=== PATIENT | female | born 1945 | race Caucasian/White ===

== ENCOUNTER → 2016-08-06 | Outpatient (CLI) | payer OTHER ==
[~2016-08-06] MED LIST: CLTP PO; COLE625T PO; CRS20 PO; DEXL60CA4 PO; Flax Seed Oil PO; GLIP2.5T11 PO; MELO7.5T5 PO; MULT-506 PO; OMEG10007 PO; PHN/25 PO; SERT1TAB71 PO; VALA500T60 PO
[2016-08-06 10:02] LABS: ESTIMATED AVERAGE GLUCOSE 163 mg/dl; HA1C FLAG Normal (Normal)
[2016-08-06 10:17] LABS: ALT/SGPT 52 U/L (12-78); AST/SGOT 29 U/L (15-37); BLOOD UREA NITROGEN 18 mg/dl (7-18); BUN/CREATININE RATIO 28.4 (10-20); CALCIUM 8.7 mg/dl (8.5-10.1); CARBON DIOXIDE 28 mmol/L (21-32); CHLORIDE 107 mmol/L (98-107); CREATININE 0.63 mg/dl (0.60-1.20); GLUCOSE 127 mg/dl (70-99); POTASSIUM 3.8 mmol/L (3.5-5.1); SODIUM 143 mmol/L (136-145)
[2016-08-06 10:19] LABS: ALB/GLOB RATIO 1.1 (0.9-2); ALKALINE PHOSPHATASE 71 U/L (45-117)
== END | disposition home or self-care (01) ==
LOC: C.LAB1850 08:08
PROVIDERS: ATTEND Internal Medicine Pulmonary Disease
DX: E78.00 Pure hypercholesterolemia, unspecified (principal); K21.9 Gastro-esophageal reflux disease without esophagitis; E11.9 Type 2 diabetes mellitus without complications; J30.9 Allergic rhinitis, unspecified

== ENCOUNTER → 2016-10-21 | Outpatient (CLI) | payer OTHER ==
--- NOTE | 2016-10-21 17:13 | MAMMOGRAPHY REPORT ---
BILATERAL DIGITAL SCREENING MAMMOGRAM WITH CAD: 10/21/2016 CLINICAL HISTORY: Routine screening. Patient has no complaints. TECHNIQUE: Bilateral CC and MLO views were obtained. Current study was also evaluated with a Compute r Aided Detection (CAD) system. COMPARISON: Comparison is made to exams dated: 10/18/2015 mammogram, 10/17/2014 mammogram, 10/16/2013 mamm ogram, 10/18/2012 mammogram, 10/14/2012 mammogram, and 08/05/2011 mammogram - [facility]. BREAST COMPOSITION: There are scattered areas of fibroglandular density in both breasts. FINDINGS: Focal asymmetry in the upper outer middle one third of the right breast appears nearly iden tical to all available prior mammograms dating back to at least 07/22/2009, therefore likely benign. There is stable nodularity throughout the left breast. Scattered benign-appearing calcifications bi laterally. No new suspicious mass, architectural distortion or cluster of microcalcifications is see n. IMPRESSION: ACR BI-RADS CATEGORY 1: NEGATIVE There is no mammographic evidence of malignancy. A 1 year screening mammogram is recommended. The pa tient will receive written notification of the results. Approximately 10% of breast cancers are not detected with mammography. A negative mammographic report should not delay biopsy if a clinically suggestive mass is present. Merry Dumont M.D. ay/:10/21/2016 15:10:30 Test Architect: Anju ADAM)(M), [facility] letter sent: Normal 1/2 BI-RADS Code: ACR BI-RADS Category 1: Negative
== END | disposition home or self-care (01) ==
LOC: C.MAMM 10:34
PROVIDERS: ATTEND Obstetrics & Gynecology
DX: Z12.31 Encounter for screening mammogram for malignant neoplasm of breast (principal)

== ENCOUNTER → 2016-12-11 | Outpatient (CLI) | payer OTHER ==
[2016-12-11 16:54] LABS: BLOOD UREA NITROGEN 18 mg/dl (7-18); BUN/CREATININE RATIO 28.7 (10-20); CALCIUM 9.3 mg/dl (8.5-10.1); CARBON DIOXIDE 29 mmol/L (21-32); CHLORIDE 108 mmol/L (98-107); CREATININE 0.63 mg/dl (0.60-1.20); GLUCOSE 164 mg/dl (70-99); PHOSPHORUS 3.2 mg/dl (2.5-4.9); SODIUM 143 mmol/L (136-145)
== END | disposition home or self-care (01) ==
LOC: C.LAB1850 15:32
PROVIDERS: ATTEND Physician Assistant
DX: K86.2 Cyst of pancreas (principal)

== ENCOUNTER → 2016-12-17 | Outpatient (CLI) | payer OTHER ==
[~2016-12-17] MED LIST changes: +OPTIRAY 320 IV PRN
--- NOTE | 2016-12-17 14:27 | DIAGNOSTIC IMAGING REPORT ---
PANCREAS (ABDOMEN) COMBO CLINICAL HISTORY: 71 years-old Female presenting with PANCREATIC CYST. TECHNIQUE: Multidetector CT of the abdomen was performed before and after the administration of intravenous contrast. IV contrast: 118 mL of Optiray 320. A dose lowering technique was used consistent with the principles of ALARA (as low as reasonably achievable). COMPARISON: MR from 12/06/2015 CT DOSE (mGy.cm): The estimated cumulative dose is 587.92 mGy.cm. FINDINGS: Internal [employer] topogram: Posterior lumbar fusion of L5-S1 with interbody spacer. Cholecystectomy clips noted. Lung bases: Minimal dependent change at the lung bases, likely atelectasis. Normal heart size. No pericardial or pleural effusion. Liver: Normal morphology. Density borderline for hepatic steatosis. No liver lesion. Conventional hepatic arterial anatomy. Superior mesenteric, portal, and hepatic veins patent. Biliary: Minimal central intrahepatic biliary ductal prominence. No extrahepatic biliary ductal dilatation. This slightly represents a reservoir effect in the post cholecystectomy state. Gallbladder surgically absent. Pancreas: Moderate parenchymal atrophy. Previously noted cystic change in the pancreas is not readily apparent due to the diminutive size. No enlarging cystic mass. Spleen: Normal. Adrenal glands: Normal. Kidneys: Bilateral nonobstructing renal calculi at the lower poles, the larger on the left measuring 5 mm. Few parenchymal hypodensities likely simple cysts. No hydronephrosis. Proximal ureters normal. Circumaortic left renal vein. Bowel: Normal. Normal appendix. No bowel obstruction. Peritoneum: No free fluid or gas. Vasculature: Atherosclerosis of the normal caliber abdominal aorta. IVC patent. Lymph nodes: No enlarged lymph nodes in the abdomen. Few subcentimeter prominent portacaval lymph nodes, possibly reactive. Abdominal wall: Asymmetric atrophy of the upper right rectus abdominis. Musculoskeletal: Posterior transpedicular screw and leonel fixation of the lower lumbar spine. IMPRESSION: 1. Previously noted subcentimeter pancreatic cyst evident on prior MR is not readily apparent on CT due to its diminutive size and moderate parenchymal fatty atrophy. However, due to the lack of change in size between MR dated 05/04/2014 and 12/06/2015, no further follow-up is warranted per the [employer] incidental findings committee recommendations cystic pancreatic lesions less than 2 cm in size. 2. Bilateral nonobstructing renal calculi. Electronically signed by: Zackary Landaverde M.D. 12/17/2016 2:25 PM Dictated Date/Time: 12/17/2016 2:15 PM
== END | disposition home or self-care (01) ==
LOC: C.CTS 13:53
PROVIDERS: ATTEND Physician Assistant
DX: K86.2 Cyst of pancreas (principal)

== ENCOUNTER → 2017-02-02 | Outpatient (CLI) | payer OTHER ==
[~2017-02-02] MED LIST changes: -OPTIRAY 320 IV PRN
[2017-02-02 09:31] LABS: BASO % 0.4 %; BASO ABS # 0.02 K/uL (0-0.2); COMPLETE YES; EOS % 1.9 %; HEMATOCRIT 41.5 % (37-47); IG% 0.2 %; LYMPH % 46.3 %; LYMPH ABS # 2.42 K/uL (1.2-3.4); MEAN CELL VOLUME 87.4 fL (80-100); MEAN CORPUSCULAR HEMOGLOBIN 29.3 pg (25-34); MEAN CORPUSCULAR HGB CONC 33.5 g/dl (32-36); MEAN PLATELET VOLUME 10.4 fL (7.4-10.4); MONO % 6.9 %; NEUT % 44.3 %; PLATELET COUNT 249 K/uL (130-400); RED BLOOD COUNT 4.75 M/uL (4.2-5.4); WHITE BLOOD COUNT 5.23 K/uL (4.8-10.8)
[2017-02-02 09:53] LABS: ALT/SGPT 38 U/L (12-78); AST/SGOT 28 U/L (15-37); BLOOD UREA NITROGEN 15 mg/dl (7-18); BUN/CREATININE RATIO 21.9 (10-20); CALCIUM 8.9 mg/dl (8.5-10.1); CARBON DIOXIDE 28 mmol/L (21-32); CHLORIDE 111 mmol/L (98-107); CREATININE 0.69 mg/dl (0.60-1.20); GLUCOSE 137 mg/dl (70-99); POTASSIUM 4.3 mmol/L (3.5-5.1); SODIUM 140 mmol/L (136-145)
[2017-02-02 10:04] LABS: ESTIMATED AVERAGE GLUCOSE 148 mg/dl; HA1C FLAG Normal (Normal)
[2017-02-02 10:05] LABS: ALB/GLOB RATIO 1.2 (0.9-2); ALKALINE PHOSPHATASE 68 U/L (45-117); CHOLESTEROL 131 mg/dl (0-200); CHOLESTEROL/HDL RATIO 2.5; HDL CHOLESTEROL 53 mg/dl; LDL CHOLESTEROL CALCULATED 50 mg/dl; TRIGLYCERIDES 141 mg/dl (0-150); VERY LOW DENSITY LIPOPROT CALC 28 mg/dl
[2017-02-02 10:13] LABS: RATIO 13.9 mcg/mg (0-30.0)
== END | disposition home or self-care (01) ==
LOC: C.LAB1850 07:19
PROVIDERS: ATTEND Internal Medicine Pulmonary Disease
DX: K21.9 Gastro-esophageal reflux disease without esophagitis (principal); M51.36 Other intervertebral disc degeneration, lumbar region; E11.9 Type 2 diabetes mellitus without complications; J30.9 Allergic rhinitis, unspecified

== ENCOUNTER → 2017-08-03 | Outpatient (CLI) | payer OTHER ==
[2017-08-03 09:43] LABS: ALBUMIN 3.8 gm/dl (3.4-5.0); ALT/SGPT 31 U/L (12-78); BLOOD UREA NITROGEN 20 mg/dl (7-18); CALCIUM 9.1 mg/dl (8.5-10.1); CARBON DIOXIDE 26 mmol/L (21-32); CHOLESTEROL 134 mg/dl (0-200); CREATININE 0.69 mg/dl (0.60-1.20); GLUCOSE 141 mg/dl (70-99); POTASSIUM 3.8 mmol/L (3.5-5.1); SODIUM 139 mmol/L (136-145)
[2017-08-03 09:46] LABS: ALKALINE PHOSPHATASE 73 U/L (45-117); AST/SGOT 23 U/L (15-37); LDL CHOLESTEROL CALCULATED 54 mg/dl; TOTAL PROTEIN 7.4 gm/dl (6.4-8.2)
[2017-08-03 09:57] LABS: HEMOGLOBIN A1C 6.9 % (4.5-5.6)
== END | disposition home or self-care (01) ==
LOC: C.LAB1850 07:27
PROVIDERS: ATTEND Internal Medicine Pulmonary Disease
DX: M15.9 Polyosteoarthritis, unspecified (principal)

== ENCOUNTER → 2018-01-10 | Outpatient (CLI) | payer OTHER | END | disposition home or self-care (01) | LOC: C.LAB1850 09:10 | PROVIDERS: ATTEND Internal Medicine Pulmonary Disease | DX: N39.0 Urinary tract infection, site not specified (principal); R35.0 Frequency of micturition ==